=== PATIENT | male | born 1950 | race African-American/Black ===

== ENCOUNTER 2017-10-16 12:07 | Inpatient (IN) | payer MEDICARE, OTHER ==
[~2017-10-16] VITALS: Ht 180.3 cm; Wt 64.0 kg
[2017-10-16 17:50] VITALS: BP 104/58
[2017-10-16] MEDS ORDERED: DESCOVY 200-251 EACH PO (18:10)
[2017-10-16] MEDS ORDERED: SUSTIVA600 MG ORAL (18:10)
[2017-10-16] MEDS ORDERED: NORVIR100 M2 ORAL (18:10)
[2017-10-16] MEDS ORDERED: FLOMAX0.4 MG ORAL (18:10)
[2017-10-16] MEDS ORDERED: METFORMIN HCL1000 M1 ORAL (18:10)
[2017-10-16] MEDS ORDERED: LISINOPRIL10 MG ORAL (18:10)
[2017-10-16] MEDS ORDERED: MOVANTIK25 MG PO (18:10)
[2017-10-16 20:21] LABS: BASOPHILS % (AUTO) 0.4 % (0.0-2.0); EOSINOPHILS % (AUTO) 1.3 % (0.0-3.0); LYMPHOCYTES % (AUTO) 30.1 % (20.0-45.0); MEAN CORPUSCULAR HEMOGLOBIN 31.4 PG (27.0-31.0); MEAN CORPUSCULAR HGB CONC 32.4 G/DL (32.0-36.0); MEAN CORPUSCULAR VOLUME 97 FL (80-99); MEAN PLATELET VOLUME 5.7 FL (6.5-10.1); MONOCYTES % (AUTO) 9.2 % (1.0-10.0); PLATELET COUNT 188 K/UL (150-450); RED BLOOD COUNT 4.24 M/UL (4.70-6.10); RED CELL DISTRIBUTION WIDTH 16.8 % (11.6-14.8); WHITE BLOOD COUNT 7.1 K/UL (4.8-10.8)
[2017-10-16 20:30] LABS: ANION GAP 9 mmol/L (5-15); CALCIUM 8.7 MG/DL (8.5-10.1); CARBON DIOXIDE 20 MMOL/L (21-32); CHLORIDE 114 MMOL/L (98-107); CREATININE 1.2 MG/DL (0.55-1.30); GLOMERULAR FILTRATION RATE > 60 mL/min (>60); SODIUM 142 MMOL/L (136-145)
[2017-10-16 20:33] LABS: POTASSIUM 1.9 MMOL/L (3.5-5.1)
[2017-10-16] MEDS ORDERED: Potassium Chloride 10 MEQ in NS 110 ML IVPB SCH (20:45)
[2017-10-16] MEDS: Norco 5mg/325mg tab ORAL PRN (20:53)
[2017-10-16 21:00] VITALS: BP 155/88
[2017-10-16] MEDS: SUSTIVA 600 MG ORAL SCH ×2 (21:42→22:52)
[2017-10-16] MEDS: D5 1/2NS 1,000 ML IV SCH (21:46)
[2017-10-16] MEDS ORDERED: Tamsulosin 0.4mg cap ORAL ONE (22:15)
[2017-10-16] MEDS ORDERED: Naloxegol Oxalate 25mg tab ORAL ONE (22:15)
[2017-10-16] MEDS ORDERED: Ritonavir 100mg tab ORAL ONE (22:15)
[2017-10-16] MEDS: DESCOVY ORAL SCH (22:52)
[2017-10-16] MEDS: NORVIR 100 MG ORAL SCH (22:52)
[2017-10-17] VITALS: BP 132/80
[2017-10-17] MEDS ORDERED: NORCO 10-325 T1 EACH ORAL (03:35)
[2017-10-17] MEDS ORDERED: MS CONTIN30 MG ORAL (03:35)
[2017-10-17 04:00] VITALS: BP 128/58
[2017-10-17] MEDS: D5 1/2NS 1,000 ML IV SCH (04:00)
[2017-10-17] MEDS: Norco 5mg/325mg tab ORAL PRN ×3 (05:36→22:56)
[2017-10-17] MEDS: metFORMIN 500mg tab ORAL SCH ×2 (06:33→16:30)
[2017-10-17 08:21] LABS: ANION GAP 9 mmol/L (5-15); CALCIUM 8.2 MG/DL (8.5-10.1); CARBON DIOXIDE 19 MMOL/L (21-32); CHLORIDE 113 MMOL/L (98-107); CREATININE 1.1 MG/DL (0.55-1.30); GLOMERULAR FILTRATION RATE > 60 mL/min (>60); SODIUM 141 MMOL/L (136-145)
[2017-10-17 08:27] LABS: POTASSIUM 2.3 MMOL/L (3.5-5.1)
[2017-10-17 08:30] VITALS: BP 131/63
[2017-10-17 08:39] LABS: BASOPHILS % (AUTO) 0.4 % (0.0-2.0); EOSINOPHILS % (AUTO) 1.1 % (0.0-3.0); LYMPHOCYTES % (AUTO) 29.7 % (20.0-45.0); MEAN CORPUSCULAR HEMOGLOBIN 30.8 PG (27.0-31.0); MEAN CORPUSCULAR HGB CONC 31.5 G/DL (32.0-36.0); MEAN CORPUSCULAR VOLUME 98 FL (80-99); MEAN PLATELET VOLUME 6.7 FL (6.5-10.1); MONOCYTES % (AUTO) 9.4 % (1.0-10.0); NEUTROPHILS % (AUTO) 59.4 % (45.0-75.0); PLATELET COUNT 208 K/UL (150-450); RED BLOOD COUNT 4.13 M/UL (4.70-6.10); RED CELL DISTRIBUTION WIDTH 17.4 % (11.6-14.8); WHITE BLOOD COUNT 6.7 K/UL (4.8-10.8)
[2017-10-17] MEDS: Tamsulosin 0.4mg cap ORAL SCH (08:56)
[2017-10-17] MEDS: Naloxegol Oxalate 25mg tab ORAL SCH (08:56)
[2017-10-17] MEDS: DESCOVY ORAL SCH (08:56)
[2017-10-17] MEDS: NORVIR 100 MG ORAL SCH (08:56)
[2017-10-17] MEDS ORDERED: NORVIR 100 MG ORAL SCH (09:00)
[2017-10-17] MEDS ORDERED: DESCOVY ORAL SCH (09:00)
[2017-10-17] MEDS ORDERED: metFORMIN 500mg tab ORAL SCH (09:00)
[2017-10-17 11:24] LABS: ANION GAP 10 mmol/L (5-15); CALCIUM 8.4 MG/DL (8.5-10.1); CARBON DIOXIDE 18 MMOL/L (21-32); CHLORIDE 114 MMOL/L (98-107); GLOMERULAR FILTRATION RATE > 60 mL/min (>60); MAGNESIUM 2.4 MG/DL (1.8-2.4); SODIUM 142 MMOL/L (136-145)
[2017-10-17 11:28] LABS: POTASSIUM 2.2 MMOL/L (3.5-5.1)
[2017-10-17 11:30] VITALS: BP 134/67
[2017-10-17] MEDS ORDERED: D5 1/2NS w/KCl 20mEq 1,000 ML IV SCH (11:30)
[2017-10-17] MEDS: D5 1/2NS w/KCl 20mEq 1,000 ML IV SCH ×2 (12:07→21:19)
[2017-10-17] MEDS ORDERED: D5 1/2NS 1000ml IV ONE (14:50)
[2017-10-17] MEDS ORDERED: Tubing IV Secondary IV ONE (14:50)
[2017-10-17 15:48] VITALS: BP 120/56
--- NOTE | 2017-10-17 17:03 | History and Physical ---
History of Present Illness General Date patient seen: Oct 17, 2017 Reason for Hospitalization: dehydration Present Illness HPI 66 y/o male with a PMH of HIV (unknown CD4), legally blind, wheel-chair bound, BPH, HTN, and recent hip surgery presents for electrolyte imbalances. Patient was noted to have a K of 1.8. He states that he regularly has to take oral potassium pills but does not know why his potassium is always low. Patient states that he is very frustrated because he cannot take care of himself due to his medical conditions and take the appropriate meds. Denies chest pain, sob, fevers, chills, n/v, abdominal pain, d/c. Allergies: Coded Allergies: NO KNOWN ALLERGIES (Verified Allergy, Unknown, 10/16/17) Medication History Scheduled Efavirenz (Sustiva), 600 MG ORAL BEDTIME, (Reported) Emtricitabine/Tenofov Alafenam (Descovy 200-25 mg Tablet), 1 EACH PO DAILY, ( Reported) Lisinopril* (Lisinopril*), 10 MG ORAL DAILY, (Reported) Metformin Hcl* (Metformin Hcl*), 0.5 TAB ORAL TWICE A DAY, (Reported) Morphine Sulfate* (Ms Contin*), 30 MG ORAL EVERY 8 HOURS, (Reported) Naloxegol Oxalate (Movantik), 25 MG PO DAILY, (Reported) Ritonavir (Norvir), 100 MG ORAL DAILY, (Reported) Tamsulosin HCl (Flomax), 0.4 MG ORAL DAILY, (Reported) Scheduled PRN Hydrocodone Bit/Acetaminophen 10-325* ([place] 10-325*), 1 TAB ORAL Q6H PRN for For Pain, (Reported) Patient History History Provided By: Patient Healthcare decision maker Resuscitation status Full Code Advanced Directive on File No Review of Systems All Other Systems: negative except mentioned in HPI Physical Exam General Appearance: no apparent distress, alert HEENT: normocephalic, atraumatic, PERRL, other - legally blind Neck: non-tender, supple Respiratory/Chest: chest wall non-tender, lungs clear, normal breath sounds Cardiovascular/Chest: normal peripheral pulses, normal rate, regular rhythm Abdomen: normal bowel sounds, non tender, soft Skin Exam: normal pigmentation, warm/dry Neurologic: residential electrician II-XII grossly normal, no motor/sensory deficits, alert, oriented x 3 Last 24 Hour Vital Signs Date Time Temp Pulse Resp B/P (MAP) Pulse Ox O2 Delivery O2 Flow Rate FiO2 10/17/17 15:48 97.0 69 20 120/56 98 10/17/17 11:30 97.5 73 19 134/67 98 Room Air 10/17/17 08:30 97.6 78 20 131/63 99 10/17/17 06:37 97.7 10/17/17 04:00 97.7 70 21 128/58 97 10/17/17 04:00 Room Air 10/17/17 00:00 Room Air 10/17/17 00:00 97.7 73 20 132/80 99 Room Air 10/16/17 21:00 97.7 72 18 155/88 99 Room Air 10/16/17 20:00 Room Air 10/16/17 17:50 96.6 58 18 104/58 100 Room Air Intake and Output 10/16/17 10/17/17 19:00 07:00 Intake Total 550 ml Output Total 1100 ml Balance -550 ml Intake Oral 350 ml IV Total 200 ml Output Urine Total 1100 ml # Voids 1 Laboratory Tests Test 10/16/17 20:00 10/17/17 08:00 10/17/17 10:50 White Blood Count 7.1 K/UL (4.8-10.8) 6.7 K/UL (4.8-10.8) Red Blood Count 4.24 M/UL (4.70-6.10) L 4.13 M/UL (4.70-6.10) L Hemoglobin 13.3 G/DL (14.2-18.0) L 12.7 G/DL (14.2-18.0) L Hematocrit 41.1 % (42.0-52.0) L 40.4 % (42.0-52.0) L Mean Corpuscular Volume 97 FL (80-99) 98 FL (80-99) Mean Corpuscular Hemoglobin 31.4 PG (27.0-31.0) H 30.8 PG (27.0-31.0) Mean Corpuscular Hemoglobin Concent 32.4 G/DL (32.0-36.0) 31.5 G/DL (32.0-36.0) L Red Cell Distribution Width 16.8 % (11.6-14.8) H 17.4 % (11.6-14.8) H Platelet Count 188 K/UL (150-450) 208 K/UL (150-450) Mean Platelet Volume 5.7 FL (6.5-10.1) L 6.7 FL (6.5-10.1) Neutrophils (%) (Auto) 59.0 % (45.0-75.0) 59.4 % (45.0-75.0) Lymphocytes (%) (Auto) 30.1 % (20.0-45.0) 29.7 % (20.0-45.0) Monocytes (%) (Auto) 9.2 % (1.0-10.0) 9.4 % (1.0-10.0) Eosinophils (%) (Auto) 1.3 % (0.0-3.0) 1.1 % (0.0-3.0) Basophils (%) (Auto) 0.4 % (0.0-2.0) 0.4 % (0.0-2.0) Sodium Level 142 MMOL/L (136-145) 141 MMOL/L (136-145) 142 MMOL/L (136-145) Potassium Level 1.9 MMOL/L (3.5-5.1) *L 2.3 MMOL/L (3.5-5.1) *L 2.2 MMOL/L (3.5-5.1) *L Chloride Level 114 MMOL/L (98-107) H 113 MMOL/L (98-107) H 114 MMOL/L (98-107) H Carbon Dioxide Level 20 MMOL/L (21-32) L 19 MMOL/L (21-32) L 18 MMOL/L (21-32) L Anion Gap 9 mmol/L (5-15) 9 mmol/L (5-15) 10 mmol/L (5-15) Blood Urea Nitrogen 13 mg/dL (7-18) 14 mg/dL (7-18) 15 mg/dL (7-18) Creatinine 1.2 MG/DL (0.55-1.30) 1.1 MG/DL (0.55-1.30) 1.0 MG/DL (0.55-1.30) Estimat Glomerular Filtration Rate > 60 mL/min (>60) > 60 mL/min (>60) > 60 mL/min (>60) Glucose Level 135 MG/DL (74-106) H 166 MG/DL (74-106) H 122 MG/DL (74-106) H Calcium Level 8.7 MG/DL (8.5-10.1) 8.2 MG/DL (8.5-10.1) L 8.4 MG/DL (8.5-10.1) L Magnesium Level 2.4 MG/DL (1.8-2.4) Height (Feet): 5 Height (Inches): 11.00 Weight (Pounds): 141 Medications Current Medications Medications (Trade) Dose Ordered Sig/Shakir Route PRN Reason Start Time Stop Time Status Last Admin Dose Admin Acetaminophen (Tylenol) 650 mg Q6H PRN ORAL Mild Pain/Temp > 100.5 10/16/17 20:30 11/15/17 20:29 Acetaminophen/ Hydrocodone Bitart ([place] 5/325) 1 tab Q6H PRN ORAL moderate to severe pain (4-10) 10/16/17 20:30 10/23/17 20:29 10/17/17 15:40 Dextrose/ Electrolytes 1,000 ml @ 100 mls/hr Q10H IV 10/17/17 12:15 11/16/17 12:14 10/17/17 12:07 Metformin HCl (Glucophage) 500 mg BIAC ORAL 10/17/17 06:30 11/16/17 08:59 10/17/17 06:33 Naloxegol (Movantik) 25 mg DAILY ORAL 10/17/17 09:00 11/16/17 08:59 10/17/17 08:56 Patient Own Medication (Patient's Own Med) 1 ea DAILY ORAL 10/16/17 22:45 11/15/17 22:44 10/17/17 08:56 Patient Own Medication (Patient's Own Med) 1 ea DAILY ORAL 10/16/17 22:45 11/15/17 22:44 10/17/17 08:56 Patient Own Medication (Patient's Own Med) 1 ea QHS ORAL 10/16/17 21:00 11/15/17 20:59 10/16/17 21:42 Tamsulosin HCl (Flomax) 0.4 mg DAILY ORAL 10/17/17 09:00 11/16/17 08:59 10/17/17 08:56 Assessment/Plan Problem List: (1) Hypokalemia ICD Codes: E87.6 - Hypokalemia SNOMED: 27290488 (2) HIV (human immunodeficiency virus infection) ICD Codes: B20 - Human immunodeficiency virus [HIV] disease SNOMED: 13792003 (3) BPH (benign prostatic hyperplasia) ICD Codes: N40.0 - Benign prostatic hyperplasia without lower urinary tract symptoms SNOMED: 593368942 (4) HTN (hypertension) ICD Codes: I10 - Essential (primary) hypertension SNOMED: 69628917 (5) Chronic pain ICD Codes: G89.29 - Other chronic pain SNOMED: 32764287 (6) Legally blind ICD Codes: H54.8 - Legal blindness, as defined in [place] SNOMED: 61095808 (7) Severe dehydration ICD Codes: E86.0 - Dehydration SNOMED: 591275205 Status: stable Assessment/Plan - Admit to inpatient - replete K. repeat BMP and Mg - IVF - continue home meds - pain control and supportive care D/w manager rn case, RN, and patient Dispo planning: [facility] Total patient care and coordination: 55 minutes Frannie Iglesias N.P. Oct 17, 2017 17:03
[2017-10-17] MEDS ORDERED: POTASSIUM CHLO20 ME2 ORAL (17:46)
--- NOTE | 2017-10-17 17:48 | Discharge Instructions ---
Discharge Instructions Discharge Instructions Follow up with: Repeat BMP and Mg in AM. F/u with PMD within 1 week. For Congestive Heart Failure Reminder Report to your physician any weight gain of 5 pounds or more in one week. Frannie Iglesias N.P. Oct 17, 2017 17:48
--- NOTE | 2017-10-17 17:53 | Discharge Summary ---
Discharge Summary Hospital Course Date of Admission Oct 16, 2017 at 15:40 Date of Discharge 10/17/17 Admitting Diagnosis - severe dehydration - hypokalemia Reason for Hospitalization: severe dehydration HPI Oz Andersno is a 66 year old male who was admitted on Oct 16, 2017 at 15: 40 for Severe Dehydration, Altered Mental Status Consultations None Procedures None Hospital Course Patient is a 66 y/o male with a PMH of HIV, HLD, chronic pain, and legally blind who presented from a skilled nursing for severe dehydration. Patient was given IVF and potassium was repleted. Patient was then stable for discharge to SNF and was advised to follow up with PMD for repeat labs. Discharge Medications New Medications: PENDING: Potassium Chloride (Potassium Chloride) 20 Meq Packet 20 MEQ ORAL DAILY, #30 PKT 0 Refills Continued Medications: Efavirenz (Sustiva) 600 Mg Tablet 600 MG ORAL BEDTIME, TAB Emtricitabine/Tenofov Alafenam (Descovy 200-25 mg Tablet) 1 Each Tablet 1 EACH PO DAILY, TAB Hydrocodone Bit/Acetaminophen 10-325* ([place] 10-325*) 1 Each Tablet 1 TAB ORAL Q6H PRN for For Pain, #10 TAB 0 Refills PRN PAIN Lisinopril* (Lisinopril*) 10 Mg Tablet 10 MG ORAL DAILY, TAB Metformin Hcl* (Metformin Hcl*) 1,000 Mg Tablet 0.5 TAB ORAL TWICE A DAY, TAB Morphine Sulfate* (Ms Contin*) 30 Mg Tablet.er 30 MG ORAL EVERY 8 HOURS, #30 TAB 0 Refills Naloxegol Oxalate (Movantik) 25 Mg Tablet 25 MG PO DAILY, TAB Ritonavir (Norvir) 100 Mg Tablet 100 MG ORAL DAILY, TAB Tamsulosin HCl (Flomax) 0.4 Mg Cap.er.24h 0.4 MG ORAL DAILY, CAP Discharge Condition Upon Discharge: stable Discharge Disposition Patient was discharged to [facility], [facility] Discharge Diagnoses: (1) Hypokalemia (2) HTN (hypertension) (3) Chronic pain (4) Severe dehydration (5) Legally blind (6) HIV (human immunodeficiency virus infection) (7) BPH (benign prostatic hyperplasia) Discharge Instructions Discharge Instructions Follow up with: Repeat BMP and Mg in AM. F/u with PMD within 1 week. Frannie Iglesias N.P. Oct 17, 2017 17:53
[2017-10-17 20:00] VITALS: BP 147/77
[2017-10-17] MEDS: SUSTIVA 600 MG ORAL SCH (21:14)
[2017-10-18] VITALS (7 sets, daily range): BP systolic 123–145; BP diastolic 55–83
[2017-10-18] MEDS: metFORMIN 500mg tab ORAL SCH ×2 (06:35→16:59)
[2017-10-18 07:06] LABS: ANION GAP 10 mmol/L (5-15); BASOPHILS % (AUTO) 0.6 % (0.0-2.0); CALCIUM 8.3 MG/DL (8.5-10.1); CARBON DIOXIDE 19 MMOL/L (21-32); CHLORIDE 113 MMOL/L (98-107); EOSINOPHILS % (AUTO) 1.1 % (0.0-3.0); GLOMERULAR FILTRATION RATE > 60 mL/min (>60); LYMPHOCYTES % (AUTO) 36.6 % (20.0-45.0); MEAN CORPUSCULAR HEMOGLOBIN 31.1 PG (27.0-31.0); MEAN CORPUSCULAR HGB CONC 31.7 G/DL (32.0-36.0); MEAN CORPUSCULAR VOLUME 98 FL (80-99); MEAN PLATELET VOLUME 6.5 FL (6.5-10.1); MONOCYTES % (AUTO) 8.7 % (1.0-10.0); PLATELET COUNT 202 K/UL (150-450); RED BLOOD COUNT 4.26 M/UL (4.70-6.10); RED CELL DISTRIBUTION WIDTH 16.9 % (11.6-14.8); SODIUM 142 MMOL/L (136-145); WHITE BLOOD COUNT 6.2 K/UL (4.8-10.8)
[2017-10-18 07:10] LABS: POTASSIUM 2.7 MMOL/L (3.5-5.1)
[2017-10-18] MEDS: Tamsulosin 0.4mg cap ORAL SCH (08:57)
[2017-10-18] MEDS: D5 1/2NS w/KCl 20mEq 1,000 ML IV SCH (08:57)
[2017-10-18] MEDS: DESCOVY ORAL SCH (08:58)
[2017-10-18] MEDS: NORVIR 100 MG ORAL SCH (08:58)
[2017-10-18] MEDS: Naloxegol Oxalate 25mg tab ORAL SCH (08:58)
[2017-10-18] MEDS: Norco 5mg/325mg tab ORAL PRN ×3 (09:00→20:27)
[2017-10-18] MEDS ORDERED: D5 1/2NS w/KCl 20mEq 1,000 ML IV SCH (12:00)
[2017-10-18] MEDS ORDERED: K-DUR20 MEQ ORAL (14:18)
[2017-10-18] MEDS ORDERED: D5 1/2NS 1000ml IV ONE (16:54)
[2017-10-18 17:00] LABS: ANION GAP 9 mmol/L (5-15); CALCIUM 7.4 MG/DL (8.5-10.1); CARBON DIOXIDE 19 MMOL/L (21-32); CHLORIDE 115 MMOL/L (98-107); CREATININE 1.1 MG/DL (0.55-1.30); GLOMERULAR FILTRATION RATE > 60 mL/min (>60); MAGNESIUM 2.2 MG/DL (1.8-2.4); SODIUM 143 MMOL/L (136-145)
[2017-10-18 17:02] LABS: POTASSIUM 2.5 MMOL/L (3.5-5.1)
[2017-10-18] MEDS: Potassium Chloride 40 MEQ in D5 1/2NS 1,000 ML IV SCH (20:26)
[2017-10-18] MEDS: SUSTIVA 600 MG ORAL SCH (20:26)
--- NOTE | 2017-10-19 02:55 | General Progress Note ---
Assessment/Plan Problem List: (1) Hypokalemia ICD Codes: E87.6 - Hypokalemia SNOMED: 90673909 (2) HTN (hypertension) ICD Codes: I10 - Essential (primary) hypertension SNOMED: 04436716 (3) Chronic pain ICD Codes: G89.29 - Other chronic pain SNOMED: 68642720 (4) HIV (human immunodeficiency virus infection) ICD Codes: B20 - Human immunodeficiency virus [HIV] disease SNOMED: 64312306 (5) Severe dehydration ICD Codes: E86.0 - Dehydration SNOMED: 320207387 (6) Legally blind ICD Codes: H54.8 - Legal blindness, as defined in [place] SNOMED: 70878866 (7) BPH (benign prostatic hyperplasia) ICD Codes: N40.0 - Benign prostatic hyperplasia without lower urinary tract symptoms SNOMED: 444028891 Status: stable Assessment/Plan - replete K --> 60meq PO - incr IVFs to 40meq KCl - repeat BMP and Mg in AM - IVF - continue home meds - pain control and supportive care - SW/CM consulted for SNF placement FULL CODE D/w ed case manager, RN, and patient regarding mgmt and dispo Dispo planning: [facility] SNF in 1-2 days Subjective Date patient seen: Oct 18, 2017 Time patient seen: 15:30 ROS Limited/Unobtainable: No Constitutional: Reports: no symptoms HEENT: Reports: no symptoms Cardiovascular: Reports: no symptoms Respiratory: Reports: no symptoms Gastrointestinal/Abdominal: Reports: no symptoms Genitourinary: Reports: no symptoms Neurologic/Psychiatric: Reports: no symptoms Endocrine: Reports: no symptoms Hematologic/Lymphatic: Reports: no symptoms Allergies: Coded Allergies: NO KNOWN ALLERGIES (Verified Allergy, Unknown, 10/16/17) All Systems: reviewed and negative except above Subjective No acute o/n events K cont to run low at 2.5. Being repleted again SNF unable to accept per RN Pt feels well. Pain controlled. Denies f/c, n/v, d/c, chest pain, SOB Objective Last 24 Hour Vital Signs Date Time Temp Pulse Resp B/P (MAP) Pulse Ox O2 Delivery O2 Flow Rate FiO2 10/18/17 23:54 97.3 62 20 136/71 98 Room Air 10/18/17 20:00 97.9 68 20 129/61 98 Room Air 10/18/17 16:00 96.6 70 20 141/78 99 10/18/17 12:25 98.2 63 20 145/83 99 10/18/17 08:00 97.7 71 20 123/55 99 10/18/17 04:00 97.7 58 21 136/64 100 Intake and Output 10/18/17 10/19/17 19:00 07:00 Intake Total 780 ml 200 ml Output Total 700 ml Balance 80 ml 200 ml Intake Oral 480 ml IV Total 300 ml 200 ml Output Urine Total 700 ml # Bowel Movements 2 Laboratory Tests 10/18/17 06:05: White Blood Count 6.2, Red Blood Count 4.26L, Hemoglobin 13.2L, Hematocrit 41.7L , Mean Corpuscular Volume 98, Mean Corpuscular Hemoglobin 31.1H, Mean Corpuscular Hemoglobin Concent 31.7L, Red Cell Distribution Width 16.9H, Platelet Count 202, Mean Platelet Volume 6.5, Neutrophils (%) (Auto) 53.0, Lymphocytes (%) (Auto) 36.6, Monocytes (%) (Auto) 8.7, Eosinophils (%) (Auto) 1.1, Basophils (%) (Auto) 0.6, Sodium Level 142, Potassium Level 2.7*L, Chloride Level 113H, Carbon Dioxide Level 19L, Anion Gap 10, Blood Urea Nitrogen 11, Creatinine 1.0, Estimat Glomerular Filtration Rate > 60, Glucose Level 141H, Calcium Level 8.3L 10/18/17 16:00: Sodium Level 143, Potassium Level 2.5*L, Chloride Level 115H, Carbon Dioxide Level 19L, Anion Gap 9, Blood Urea Nitrogen 12, Creatinine 1.1, Estimat Glomerular Filtration Rate > 60, Glucose Level 128H, Calcium Level 7.4L, Magnesium Level 2.2 Height (Feet): 5 Height (Inches): 11.00 Weight (Pounds): 141 Objective General: alert, cooperative, no distress, appears stated age Head: normocephalic, without obvious abnormality, atraumatic Eyes: conjunctivae/corneas clear. PERRL, EOM's intact - legally blind Throat: lips, mucosa, and tongue normal. MMM Neck: supple, symmetrical, trachea midline, and no JVD Lungs: clear to auscultation bilaterally Heart: regular rate and rhythm, S1, S2 normal, no murmur, click, rub or gallop Abdomen: soft, non-tender, non-distended, bowel sounds normal; no masses or organomegaly Extremities: extremities normal, atraumatic, no cyanosis or edema Pulses: 2+ and symmetric Skin: skin color, texture, turgor normal; no rashes or lesions Neurologic: grossly normal, no focal deficits Florencia Ford M.D. Oct 19, 2017 02:55
[2017-10-19 04:00] VITALS: BP 137/78
[2017-10-19] MEDS: Norco 5mg/325mg tab ORAL PRN ×5 (04:12→22:45)
[2017-10-19] MEDS: Potassium Chloride 40 MEQ in D5 1/2NS 1,000 ML IV SCH (05:52)
[2017-10-19] MEDS: metFORMIN 500mg tab ORAL SCH (05:52)
[2017-10-19 07:23] LABS: ANION GAP 9 mmol/L (5-15); CALCIUM 7.7 MG/DL (8.5-10.1); CARBON DIOXIDE 20 MMOL/L (21-32); CHLORIDE 113 MMOL/L (98-107); CREATININE 1.1 MG/DL (0.55-1.30); GLOMERULAR FILTRATION RATE > 60 mL/min (>60); SODIUM 142 MMOL/L (136-145)
[2017-10-19 07:26] LABS: POTASSIUM 2.7 MMOL/L (3.5-5.1)
[2017-10-19 08:15] VITALS: BP 134/71
[2017-10-19] MEDS: Tamsulosin 0.4mg cap ORAL SCH ×2 (09:03→18:31)
[2017-10-19] MEDS: Naloxegol Oxalate 25mg tab ORAL SCH (09:03)
[2017-10-19] MEDS: NORVIR 100 MG ORAL SCH (09:04)
[2017-10-19] MEDS: DESCOVY ORAL SCH (09:04)
[2017-10-19 12:15] VITALS: BP 138/78
--- NOTE | 2017-10-19 14:13 | Consultation ---
Consult Note Consult Note asked to eval for persistant low K Assessment/Plan - Hypokalemia etiology: Urine loss GI loss- denies diarrhea Meds : Denies taking any meds of his own (2) HTN (hypertension) (3) Chronic pain (4) HIV (human immunodeficiency virus infection) (5) Severe dehydration (6) Legally blind (7) BPH (benign prostatic hyperplasia) Plan: PO and IV K [place] and [place] Flomax Stop taking any meds of own per orders MIRNA ARENAS Oct 19, 2017 14:13
--- NOTE | 2017-10-19 15:09 | General Progress Note ---
Assessment/Plan Problem List: (1) Hypokalemia Assessment & Plan: persistent ICD Codes: E87.6 - Hypokalemia SNOMED: 49569278 (2) HTN (hypertension) ICD Codes: I10 - Essential (primary) hypertension SNOMED: 30839445 (3) Chronic pain ICD Codes: G89.29 - Other chronic pain SNOMED: 03944081 (4) HIV (human immunodeficiency virus infection) ICD Codes: B20 - Human immunodeficiency virus [HIV] disease SNOMED: 70190808 (5) Severe dehydration ICD Codes: E86.0 - Dehydration SNOMED: 607098581 (6) Legally blind ICD Codes: H54.8 - Legal blindness, as defined in [place] SNOMED: 33306729 (7) BPH (benign prostatic hyperplasia) ICD Codes: N40.0 - Benign prostatic hyperplasia without lower urinary tract symptoms SNOMED: 214786721 (8) Folate deficiency ICD Codes: E53.8 - Deficiency of other specified B group vitamins SNOMED: 840507484 Status: stable Assessment/Plan - Nephrology consulted given persistent hypokalemia despite aggressive repletion - replete K 40meq q8h - IVFs - repeat BMP and Mg in AM - Start folate supplementation - continue home meds - pain control and supportive care - SW/CM consulted for SNF placement FULL CODE D/w correctional casework specialist, RN, and patient regarding mgmt and dispo Dispo planning: [facility] [place] [facility] in 1-2 days Subjective Date patient seen: Oct 19, 2017 Time patient seen: 15:09 ROS Limited/Unobtainable: No Constitutional: Reports: weakness HEENT: Reports: no symptoms Cardiovascular: Reports: no symptoms Respiratory: Reports: no symptoms Gastrointestinal/Abdominal: Reports: no symptoms Genitourinary: Reports: no symptoms Neurologic/Psychiatric: Reports: no symptoms Endocrine: Reports: no symptoms Hematologic/Lymphatic: Reports: no symptoms Allergies: Coded Allergies: NO KNOWN ALLERGIES (Verified Allergy, Unknown, 10/16/17) All Systems: reviewed and negative except above Subjective No acute o/n events K cont to run low at 2.75. Being repleted again SNF unable to accept until K improves Pt feels well. Pain controlled. Denies f/c, n/v, d/c, chest pain, SOB Objective Last 24 Hour Vital Signs Date Time Temp Pulse Resp B/P (MAP) Pulse Ox O2 Delivery O2 Flow Rate FiO2 10/19/17 12:15 97.6 80 21 138/78 97 Room Air 10/19/17 08:15 98.0 86 20 134/71 99 Room Air 10/19/17 04:00 97.5 74 19 137/78 99 Room Air 10/18/17 23:54 97.3 62 20 136/71 98 Room Air 10/18/17 20:00 97.9 68 20 129/61 98 Room Air 10/18/17 16:00 96.6 70 20 141/78 99 Intake and Output 10/18/17 10/19/17 19:00 07:00 Intake Total 780 ml 320 ml Output Total 700 ml 1700 ml Balance 80 ml -1380 ml Intake Oral 480 ml 120 ml IV Total 300 ml 200 ml Output Urine Total 700 ml 1700 ml # Voids 4 # Bowel Movements 2 Laboratory Tests 10/18/17 16:00: Sodium Level 143, Potassium Level 2.5*L, Chloride Level 115H, Carbon Dioxide Level 19L, Anion Gap 9, Blood Urea Nitrogen 12, Creatinine 1.1, Estimat Glomerular Filtration Rate > 60, Glucose Level 128H, Calcium Level 7.4L, Magnesium Level 2.2 10/19/17 06:45: Sodium Level 142, Potassium Level 2.7*L, Chloride Level 113H, Carbon Dioxide Level 20L, Anion Gap 9, Blood Urea Nitrogen 10, Creatinine 1.1, Estimat Glomerular Filtration Rate > 60, Glucose Level 119H, Calcium Level 7.7L, Folate 5.0L Height (Feet): 5 Height (Inches): 11.00 Weight (Pounds): 141 Objective General: alert, cooperative, no distress, appears stated age Head: normocephalic, without obvious abnormality, atraumatic Eyes: conjunctivae/corneas clear. PERRL, EOM's intact - legally blind Throat: lips, mucosa, and tongue normal. MMM Neck: supple, symmetrical, trachea midline, and no JVD Lungs: clear to auscultation bilaterally Heart: regular rate and rhythm, S1, S2 normal, no murmur, click, rub or gallop Abdomen: soft, non-tender, non-distended, bowel sounds normal; no masses or organomegaly Extremities: extremities normal, atraumatic, no cyanosis or edema Pulses: 2+ and symmetric Skin: skin color, texture, turgor normal; no rashes or lesions Neurologic: grossly normal, no focal deficits Florencia Ford M.D. Oct 19, 2017 15:09
[2017-10-19] MEDS ORDERED: FOLIC ACID1 MG ORAL (15:14)
[2017-10-19] MEDS ORDERED: POTASSIUM CHLO20 ME1 ORAL (15:14)
[2017-10-19] MEDS ORDERED: Potassium Chloride 50 MEQ in Sodium Chloride 500ML 550 ML IV ONE (16:00)
[2017-10-19 16:15] VITALS: BP_SYST 76
[2017-10-19 20:00] VITALS: BP 124/74
[2017-10-19 21:18] LABS: APPEARANCE,URINE CLEAR; KETONES,URINE NEGATIVE (NEGATIVE); LEUKOCYTE ESTERASE ,URINE NEGATIVE (NEGATIVE); NITRITE,URINE NEGATIVE (NEGATIVE); PH,URINE 7 (4.5-8.0); PROTEIN,URINE 2+ (NEGATIVE); UROBILINOGEN,URINE NORMAL MG/DL (0.0-1.0)
[2017-10-19 21:29] LABS: BACTERIA,URINE OCCASIONAL /HPF; RBC,URINE 0-2 /HPF (0 - 0); SQUAMOUS EPITHELIAL CELL,UR OCCASIONAL /LPF (NONE/OCC); WBC,URINE 0-2 /HPF (0 - 0)
[2017-10-20] VITALS: BP 141/86
[2017-10-20 04:00] VITALS: BP 137/88
[2017-10-20] MEDS: Norco 5mg/325mg tab ORAL PRN ×3 (05:05→15:07)
[2017-10-20 07:48] LABS: BASOPHILS % (AUTO) 0.6 % (0.0-2.0); EOSINOPHILS % (AUTO) 1.6 % (0.0-3.0); LYMPHOCYTES % (AUTO) 39.1 % (20.0-45.0); MEAN CORPUSCULAR HEMOGLOBIN 30.8 PG (27.0-31.0); MEAN CORPUSCULAR HGB CONC 31.3 G/DL (32.0-36.0); MEAN CORPUSCULAR VOLUME 99 FL (80-99); MEAN PLATELET VOLUME 6.3 FL (6.5-10.1); MONOCYTES % (AUTO) 7.8 % (1.0-10.0); PLATELET COUNT 192 K/UL (150-450); RED BLOOD COUNT 4.25 M/UL (4.70-6.10); RED CELL DISTRIBUTION WIDTH 16.6 % (11.6-14.8); WHITE BLOOD COUNT 5.7 K/UL (4.8-10.8)
[2017-10-20 08:00] VITALS: BP 125/74
[2017-10-20 08:25] LABS: ALANINE AMINOTRANSFERASE 13 U/L (12-78); ALBUMIN/GLOBULIN RATIO 0.7 (1.0-2.7); ANION GAP 8 mmol/L (5-15); ASPARTATE AMINO TRANSFERASE 11 U/L (15-37); CALCIUM 7.7 MG/DL (8.5-10.1); CARBON DIOXIDE 19 MMOL/L (21-32); CHLORIDE 114 MMOL/L (98-107); CHOLESTEROL 146 MG/DL (< 200); CHOLESTEROL/HDL RATIO 3.7 (3.3-4.4); CREATININE 1.1 MG/DL (0.55-1.30); GLOMERULAR FILTRATION RATE > 60 mL/min (>60); MAGNESIUM 2.1 MG/DL (1.8-2.4); PHOSPHORUS 1.9 MG/DL (2.5-4.9); POTASSIUM 3.2 MMOL/L (3.5-5.1); SODIUM 141 MMOL/L (136-145); TOTAL PROTEIN 6.8 G/DL (6.4-8.2); URIC ACID 2.6 MG/DL (2.6-7.2)
[2017-10-20 08:49] LABS: CRP QUANT < 0.4 mg/dL (0.00-0.90)
[2017-10-20] MEDS: Tamsulosin 0.4mg cap ORAL SCH (09:53)
[2017-10-20] MEDS: Naloxegol Oxalate 25mg tab ORAL SCH (09:53)
[2017-10-20 12:00] VITALS: BP 127/77
[2017-10-20] MEDS ORDERED: Potassium Phosphate 30 MM in NS 275 ML IV ONE (12:00)
--- NOTE | 2017-10-20 12:33 | Nephrology Progress Note ---
Assessment/Plan Problem List: (1) Hypokalemia (2) HTN (hypertension) (3) BPH (benign prostatic hyperplasia) Assessment - Hypokalemia etiology: Urine loss GI loss- denies diarrhea Meds : Denies taking any meds of his own (2) HTN (hypertension) (3) Chronic pain (4) HIV (human immunodeficiency virus infection) (5) Severe dehydration (6) Legally blind (7) BPH (benign prostatic hyperplasia) Plan Plan: PO and IV K [place] and [place] Flomax Stop taking any meds of own per orders Subjective ROS Limited/Unobtainable: No Constitutional: Reports: malaise, other - un coaporative Objective Objective Last 24 Hour Vital Signs Date Time Temp Pulse Resp B/P (MAP) Pulse Ox O2 Delivery O2 Flow Rate FiO2 10/20/17 12:00 97.6 84 18 127/77 99 10/20/17 08:00 97.3 82 20 125/74 100 10/20/17 06:04 97.7 10/20/17 04:00 97.7 76 20 137/88 100 Room Air 10/20/17 00:00 97.7 84 19 141/86 99 Room Air 10/19/17 20:00 97.7 100 19 124/74 100 Room Air 10/19/17 16:15 97.6 78 22 76/ 99 Room Air Intake and Output 10/19/17 10/20/17 19:00 07:00 Intake Total 1220 ml 480 ml Output Total 1550 ml Balance -330 ml 480 ml Intake Oral 1200 ml 480 ml IV Total 20 ml Output Urine Total 1550 ml # Voids 5 Laboratory Tests 10/19/17 15:56: Potassium Level 2.8L 10/19/17 19:00: Urine Color Pale yellow, Urine Appearance Clear, Urine pH 7, Urine Specific [place] 1.010, Urine Protein 2+H, Urine Glucose (UA) Negative, Urine Ketones Negative, Urine Occult Blood Negative, Urine Nitrite Negative, Urine Bilirubin Negative, Urine Urobilinogen Normal, Urine Leukocyte Esterase Negative, Urine RBC 0-2H, Urine WBC 0-2, Urine Squamous Epithelial Cells Occasional, Urine Bacteria Occasional, Urine Potassium Timed 26 10/20/17 01:30: Urine Random Sodium 74 10/20/17 04:17: Potassium Level 3.2L, White Blood Count 5.7, Red Blood Count 4.25L, Hemoglobin 13.1L, Hematocrit 41.9L, Mean Corpuscular Volume 99, Mean Corpuscular Hemoglobin 30.8, Mean Corpuscular Hemoglobin Concent 31.3L, Red Cell Distribution Width 16.6H, Platelet Count 192, Mean Platelet Volume 6.3L, Neutrophils (%) (Auto) 51.0, Lymphocytes (%) (Auto) 39.1, Monocytes (%) (Auto) 7.8, Eosinophils (%) (Auto) 1.6, Basophils (%) (Auto) 0.6, Sodium Level 141, Chloride Level 114H, Carbon Dioxide Level 19L, Anion Gap 8, Blood Urea Nitrogen 12, Creatinine 1.1, Estimat Glomerular Filtration Rate > 60, Glucose Level 100, Uric Acid 2.6, Calcium Level 7.7L, Phosphorus Level 1.9L, Magnesium Level 2.1, Total Bilirubin 0.1L, Gamma Glutamyl Transpeptidase 15, Aspartate Amino Transf ( AST/SGOT) 11L, Alanine Aminotransferase (ALT/SGPT) 13, Alkaline Phosphatase 178H , Total Creatine Kinase 51, C-Reactive Protein, Quantitative < 0.4, Pro-B-Type Natriuretic Peptide 110, Total Protein 6.8, Albumin 2.7L, Globulin 4.1, Albumin/ Globulin Ratio 0.7L, Triglycerides Level 95, Cholesterol Level 146, LDL Cholesterol 92, HDL Cholesterol 40, Cholesterol/HDL Ratio 3.7, Thyroid Stimulating Hormone (TSH) 1.630 Height (Feet): 5 Height (Inches): 11.00 Weight (Pounds): 141 MIRNA ARENAS Oct 20, 2017 12:33
--- NOTE | 2017-10-20 13:23 | Discharge Summary ---
Discharge Summary Hospital Course Date of Admission Oct 16, 2017 at 15:40 Date of Discharge 10/20/17 Admitting Diagnosis Dehydration, severe hypokalemia Reason for Hospitalization: Dehydration, severe hypokalemia HPI 66 y/o male with a PMH of HIV (unknown CD4), legally blind, wheel-chair bound, BPH, HTN, and recent hip surgery presents for electrolyte imbalances. Patient was noted to have a K of 1.8. He states that he regularly has to take oral potassium pills but does not know why his potassium is always low. Patient states that he is very frustrated because he cannot take care of himself due to his medical conditions and take the appropriate meds. Denies chest pain, sob, fevers, chills, n/v, abdominal pain, d/c. Consultations Nephrology Hospital Course Pt was admitted and hydrated aggressively and electrolytes repleted. He had persistent hypokalemia and was seen by nephrology. Workup sent. He was found to have folate deficiency and was started on folate supplementation. His potassium improved with [id number] potassium supplementation. Discharge physical exam: General: alert, cooperative, no distress, appears stated age Head: normocephalic, without obvious abnormality, atraumatic Eyes: conjunctivae/corneas clear. PERRL, EOM's intact Throat: lips, mucosa, and tongue normal. MMM Neck: supple, symmetrical, trachea midline, and no JVD Lungs: clear to auscultation bilaterally Heart: regular rate and rhythm, S1, S2 normal, no murmur, click, rub or gallop Abdomen: soft, non-tender, non-distended, bowel sounds normal; no masses or organomegaly Extremities: extremities normal, atraumatic, no cyanosis or edema Pulses: 2+ and symmetric Skin: skin color, texture, turgor normal; no rashes or lesions Neurologic: grossly normal, no focal deficits Discharge diagnoses: 1) Hypokalemia Assessment & Plan: persistent ICD Codes: E87.6 - Hypokalemia SNOMED: 68465126 (2) HTN (hypertension) ICD Codes: I10 - Essential (primary) hypertension SNOMED: 16300884 (3) Chronic pain ICD Codes: G89.29 - Other chronic pain SNOMED: 13380235 (4) HIV (human immunodeficiency virus infection) ICD Codes: B20 - Human immunodeficiency virus [HIV] disease SNOMED: 30721232 (5) Severe dehydration ICD Codes: E86.0 - Dehydration SNOMED: 046172021 (6) Legally blind ICD Codes: H54.8 - Legal blindness, as defined in [place] SNOMED: 64494915 (7) BPH (benign prostatic hyperplasia) ICD Codes: N40.0 - Benign prostatic hyperplasia without lower urinary tract symptoms SNOMED: 174483352 (8) Folate deficiency ICD Codes: E53.8 - Deficiency of other specified B group vitamins SNOMED: 531267902 Discharge Medications New Medications: Folic Acid* (Folic Acid*) 1 Mg Tablet 1 MG ORAL DAILY for 90 Days, TAB Potassium Chloride* (K-Dur*) 20 Meq Tab.er.prt 40 MEQ ORAL Q8HR for 30 Days, TAB Continued Medications: Efavirenz (Sustiva) 600 Mg Tablet 600 MG ORAL BEDTIME, TAB Emtricitabine/Tenofov Alafenam (Descovy 200-25 mg Tablet) 1 Each Tablet 1 EACH PO DAILY, TAB Hydrocodone Bit/Acetaminophen 10-325* ([place] 10-325*) 1 Each Tablet 1 TAB ORAL Q6H PRN for For Pain, #10 TAB 0 Refills PRN PAIN Lisinopril* (Lisinopril*) 10 Mg Tablet 10 MG ORAL DAILY, TAB Metformin Hcl* (Metformin Hcl*) 1,000 Mg Tablet 0.5 TAB ORAL TWICE A DAY, TAB Morphine Sulfate* (Ms Contin*) 30 Mg Tablet.er 30 MG ORAL EVERY 8 HOURS, #30 TAB 0 Refills Naloxegol Oxalate (Movantik) 25 Mg Tablet 25 MG PO DAILY, TAB Ritonavir (Norvir) 100 Mg Tablet 100 MG ORAL DAILY, TAB Tamsulosin HCl (Flomax) 0.4 Mg Cap.er.24h 0.4 MG ORAL DAILY, CAP Discharge Condition Upon Discharge: stable Discharge Disposition Patient was discharged to SNF/Subacute Facility(03) Discharge Diagnoses: Discharge Instructions Discharge Instructions Follow up with: Repeat BMP and Mg in AM. F/u with PMD within 1 week. Florencia Ford M.D. Oct 20, 2017 13:23
[2017-10-20 16:00] VITALS: BP 106/69
== END 2017-10-20 16:52 | DRG 640 ==
LOC: 4E 15:40
DX: E87.6 Hypokalemia (principal); B20 Human immunodeficiency virus [HIV] disease; I10 Essential (primary) hypertension; E86.0 Dehydration; H54.8 Legal blindness, as defined in USA; N40.0 Benign prostatic hyperplasia without lower urinary tract symptoms; G89.29 Other chronic pain; E78.5 Hyperlipidemia, unspecified
CPT/HCPCS: 36415; 80048; 80053; 80061; 81001; 82550; 82746; 82962; 82977; 83735; 83880; 84100; 84132; 84133; 84300; 84443; 84550; 85025; 86140; 87081; J8499